=== PATIENT | male | born 1990 | race Caucasian/White ===

== ENCOUNTER 2020-08-29 13:17 | Emergency (ER) | payer BC, OTHER ==
[~2020-08-29] VITALS: Ht 188 cm; Wt 74.8 kg
[2020-08-29 13:23] VITALS: BP 113/67
--- NOTE | 2020-08-29 13:29 | NUR ---
PATIENT AMBULATED TO BED 11.
--- NOTE | 2020-08-29 13:35 | NUR ---
PATIENT PRESENTS TO ED FOR RE[facility]CHECK [facility]. PT STATES HE RECEIVED IM ANTIOTICS YESTERDAY ALONG WITH PO ANTIBIOTICS . DENIES N/V/D; SKIN IS PINK/WARM/DRY; AAOX4 WITH EVEN AND STEADY GAIT; LUNGS CLEAR BL; HR EVEN AND REGULAR; PT DENIES ANY FEVER, CP, SOB, OR COUGH AT THIS TIME; PATIENT STATES PAIN OF 0/10 AT THIS TIME; VSS; PATIENT POSITIONED FOR COMFORT; HOB ELEVATED; BEDRAILS UP X2; BED DOWN. ER MD MADE AWARE OF PT STATUS.
--- NOTE | 2020-08-29 13:53 | NUR ---
Patient being evaluated by Dr. Marques at bedside.
[2020-08-29 14:38] LABS: APPEARANCE,URINE HAZY (CLEAR); BILIRUBIN,URINE NEGATIVE (NEGATIVE); BLOOD, URINE NEGATIVE (NEGATIVE); COLOR,URINE YELLOW (YELLOW); LEUKOCYTE ESTERASE ,URINE NEGATIVE (NEGATIVE); NITRITE, URINE NEGATIVE (NEGATIVE); PH,URINE 6.5 (5.0-9.0); UGLUCOSE NEGATIVE (NEGATIVE)
[2020-08-29 14:56] VITALS: BP 113/67
--- NOTE | 2020-08-29 15:06 | NUR ---
Patient discharged with v/s stable. Written and verbal after care instructions given and explained. Patient verbalized understanding. Ambulatory with steady gait. All questions addressed prior to discharge. Advised to follow up with PMD.
[2020-09-02 08:09] LABS: CHLAMYDIA TRACHOMATIS AMP DNA Negative (Negative)
== END 2020-08-29 15:06 | disposition home or self-care (01) ==
LOC: MED 13:17
DX: R30.0 Dysuria (principal)
CPT/HCPCS: 36415; 81003; 87086; 99283